=== PATIENT | female | born 1990 | race American Indian/Alaskan Native ===

== ENCOUNTER 2019-03-14 00:20 | Emergency (ER) | payer SELFPAY ==
[2019-03-14 00:38] VITALS: RESP 18; TEMP 98.5; O2SAT 100
[2019-03-14 00:50] VITALS: BMI 35.3
[2019-03-14] MEDS ORDERED: Sodium Chloride 0.9% 1,000 ML IV STA (00:54)
[2019-03-14 01:28] LABS: BASO # 0.01 K/mm3 (0.0-2.0); BASO % 0.1 % (0.0-3.0); EOS # 0.2 (0.0-0.7); HEMOGLOBIN 12.6 g/dL (12.0-16.0); LYMPH # 3.5 (1.2-3.4); LYMPH % 47.8 % (22.0-35.0); MEAN CELL VOLUME 85.7 fl (80.0-105.0); MEAN CORPUSCULAR HEMOGLOBIN 28.3 pg (25.0-35.0); MEAN PLATELET VOLUME 9.3 fl (7.0-11.0); MONO # 0.5 (0.1-0.6); MONO % 6.2 % (1.0-6.0); RBC 4.46 10^6/uL (3.5-6.1); RED CELL DISTRIBUTION WIDTH 13.4 % (11.5-14.5); WHITE BLOOD COUNT 7.4 10^3/uL (4.5-11.0)
[2019-03-14 01:30] LABS: PH,URINE 6.5 (4.7-8.0); URINE BILIRUBIN NEGATIVE (NEGATIVE); URINE BLOOD TRACE-LYSED (NEGATIVE); URINE GLUCOSE (UA) NEGATIVE (NEGATIVE); URINE LEUKOCYTE ESTERASE NEGATIVE Leu/uL (NEGATIVE); URINE PROTEIN NEGATIVE mg/dL (<30 mg/dL); URINE UROBILINOGEN 0.2 E.U./dL (<1 E.U./dL)
[2019-03-14 01:36] LABS: HCG,QUALITATIVE URINE POSITIVE (NEGATIVE)
[2019-03-14 01:37] LABS: URINE APPEARANCE CLEAR (CLEAR); URINE COLOR LIGHT YELLOW (YELLOW)
[2019-03-14 01:38] LABS: INR 1.12; PARTIAL THROMBOPLASTIN TIME 33.3 Seconds (26.9-38.3); PROTHROMBIN TIME 12.4 SECONDS (9.4-12.5)
--- NOTE | 2019-03-14 01:39 | ED PDOC ---
Arrival/HPI - General Historian: Patient - History of Present Illness Narrative History of Present Illness (Text): 03/14/19 01:20 28 y/o A4 7 week by LMP female with no significant PMH presents to the ED c/o abdominal pain x 2 days. Abdominal pain is sharp, intermittent, located in LLQ. Associated intermittent lightheadedness, lower back pain, nausea, vomiting, and constipation. Last BM this morning, hard brown stool. She had an ultrasound 2 weeks ago for this , but IUP was not confirmed. LMP 01/17/19. Denies fever, chills, vaginal bleeding or discharge, urinary symptoms, chest pain, cough, SOB, headache, dizziness, or any other associated symptoms. <Teri Perry - Last Filed: 03/14/19 13:02> <Sean Horton - Last Filed: 03/14/19 19:16> - General Chief Complaint: Abdominal Pain Time Seen by Provider: 03/14/19 00:22 Past Medical History - Provider Review Nursing Documentation Reviewed: Yes - Infectious Disease Hx of Infectious Diseases: None - Tetanus Immunization Tetanus Immunization: Unknown - Psychiatric Hx Substance Use: No - Surgical History Hx Section: Yes - Anesthesia Hx Anesthesia: Yes Hx Anesthesia Reactions: No Hx Malignant Hyperthermia: No <Teri Perry - Last Filed: 03/14/19 13:02> Family/Social History - Physician Review Nursing Documentation Reviewed: Yes Family/Social History: No Known Family HX Smoking Status: Never Smoked Hx Alcohol Use: No Hx Substance Use: No Hx Substance Use Treatment: No <Teri Perry - Last Filed: 03/14/19 13:02> Allergies/Home Meds <Teri Perry - Last Filed: 03/14/19 13:02> <Sean Horton - Last Filed: 03/14/19 19:16> Allergies/Adverse Reactions: Allergies No Known Allergies Allergy (Verified 03/14/19 00:50) Review of Systems - Review of Systems Constitutional: Normal. absent: Fevers Eyes: Normal. absent: Vision Changes, Photophobia ENT: Normal. absent: Sore Throat, Sinus Congestion Respiratory: Normal. absent: SOB, Cough Cardiovascular: Normal. absent: Chest Pain, Palpitations Gastrointestinal: Abdominal Pain, Constipation, Nausea, Vomiting, Appetite Changes. absent: Stool Changes, Diarrhea, Hematochezia, Hematemesis Genitourinary Female: Normal. absent: Dysuria, Frequency, Hematuria, Vaginal Bleeding, Vaginal Discharge Musculoskeletal: Back Pain. absent: Neck Pain Skin: Normal. absent: Rash Neurological: Dizziness. absent: Headache, Focal Weakness <Teri Perry - Last Filed: 03/14/19 13:02> Physical Exam Vital Signs Reviewed: Yes Vital Signs Temp Pulse Resp BP Pulse Ox 03/14/19 00:38 98.5 F 73 18 120/70 100 Temperature: Afebrile Blood Pressure: Normal Pulse: Regular Respiratory Rate: Normal Appearance: Positive for: Well-Appearing, Non-Toxic, Comfortable Pain Distress: None Mental Status: Positive for: Alert and Oriented X 3 - Systems Exam Head: Present: Atraumatic, Normocephalic Pupils: Present: PERRL Extroacular Muscles: Present: EOMI Conjunctiva: Present: Normal Mouth: Present: Moist Mucous Membranes Neck: Present: Normal Range of Motion. No: Meningeal Signs Respiratory/Chest: Present: Clear to Auscultation, Good Air Exchange. No: Respiratory Distress, Accessory Muscle Use Cardiovascular: Present: Regular Rate and Rhythm, Normal S1, S2. No: Murmurs Abdomen: Present: Tenderness (mild LLQ), Normal Bowel Sounds. No: Distention, Peritoneal Signs, Rebound, Guarding Rectal: Present: Normal Rectal Tone, Other (hard stool in rectal vault). No: Rectal Tenderness, Gross Blood, Melena, Hemorrhoids, Fissures, Nodule/Mass/Lesions Genitourinary/Pelvic Exam: Present: Normal External Genitalia, Cervical os Closed, Other (stool mass palpable from posterior vaginal wall). No: Vaginal Discharge, Vaginal Bleeding, Vaginal Lesions, Adenexal Tenderness, Cervical Motion Tendernes, Odor Back: Present: Normal Inspection. No: CVA Tenderness Upper Extremity: Present: Normal Inspection, Normal ROM, NORMAL PULSES, Neurovascularly Intact, Capillary Refill < 2s. No: Cyanosis, Edema, Temperature Abnormalties Lower Extremity: Present: Normal Inspection, NORMAL PULSES, Normal ROM, Neurovascularly Intact, Capillary Refill < 2 s. No: Edema, Temperature Abnormalties Neurological: Present: GCS=15, CN II-XII Intact, Speech Normal, Motor Func Grossly Intact, Normal Sensory Function, Gait Normal Skin: Present: Warm, Dry, Normal Color. No: Rashes Psychiatric: Present: Alert, Oriented x 3, Normal Insight, Normal Concentration, Normal Affect, Normal Mood <Teri Perry - Last Filed: 03/14/19 13:02> Vital Signs Temp Pulse Resp BP Pulse Ox 03/14/19 00:38 98.5 F 73 18 120/70 100 <Sean Horton - Last Filed: 03/14/19 19:16> Medical Decision Making ED Course and Treatment: 03/14/19 01:43 Initial Plan: * CBC, CMP * Coags * Lipase * Hcg quant * POC preg * UA * Transvaginal US * IVF 01:50 Bloodwork reviewed, unremarkable 02:00 Patient care endorsed to ED attending Dr. Horton pending Transvaginal US, quantitative Hcg, reassessment and disposition. Patient resting comfortably in stretcher with stable vitals at this time. Pt made aware of change in provider. - Lab Interpretations Lab Results: 03/14/19 01:15 03/14/19 01:15 Lab Results 03/14/19 01:15: Sodium 139, Potassium 3.9, Chloride 106, Carbon Dioxide 23, Anion Gap 15, BUN 11, Creatinine 0.7, Est GFR ( Amer) > 60, Est GFR (Non- Af Amer) > 60, Random Glucose 94, Calcium 9.4, Total Bilirubin 0.3, AST 31, ALT 11, Alkaline Phosphatase 61, Total Protein 8.1, Albumin 4.5, Globulin 3.6, Albumin/Globulin Ratio 1.2, Lipase Pending 03/14/19 01:15: Urine Color Light yellow, Urine Appearance Clear, Urine pH 6.5, Ur Specific [place] 1.015, Urine Protein Negative, Urine Glucose (UA) Negative, Urine Ketones Negative, Urine Blood Trace-lysed H, Urine Nitrate Negative, Urine Bilirubin Negative, Urine Urobilinogen 0.2, Ur Leukocyte Esterase Negative, Urine RBC Pending, Urine WBC Pending, Urine HCG, Qual Positive 03/14/19 01:15: PT 12.4, INR 1.12, APTT 33.3 03/14/19 01:15: WBC 7.4, RBC 4.46, Hgb 12.6, Hct 38.2, MCV 85.7, MCH 28.3, MCHC 33.0, RDW 13.4, Plt Count 263, MPV 9.3, Neut % (Auto) 43.9 L, Lymph % (Auto) 47.8 H, Camp % (Auto) 6.2 H, Eos % (Auto) 2.0, Baso % (Auto) 0.1, Lymph # (Auto) 3.5 H, Camp # (Auto) 0.5, Eos # (Auto) 0.2, Baso # (Auto) 0.01, Absolute Neuts (auto) 3.24 I have reviewed the lab results: Yes - RAD Interpretation Radiology Orders: 03/14/19 00:53 TRANSVAGINAL [US] Stat - Medication Orders Current Medication Orders: Sodium Chloride (Sodium Chloride 0.9%) 1,000 mls @ 999 mls/hr IV .Q1H1M STA Stop: 03/14/19 01:54 - Transfer of Care Patient signed out to Dr:: Clifford Pending Radiology Studies:: Transvaginal Ultrasound Other: Reassesment and Disposition <Teri Perry - Last Filed: 03/14/19 13:02> ED Course and Treatment: 03/14/19 03:29 Transvaginal US:Retroverted uterus. Normal cervical length measuring 4.3 cm. Single intrauterine gestational sac. Estimated gestational age 5 weeks and 4 days. The crown-rump length measures 0.7 cm. This corresponds to an estimated gestational age of 6 weeks and 4 days. heart rate 132 beats per minute. Nonvisualization of the ovaries. Impression: Single, live intrauterine gestation. No abnormality is seen. Electronically signed on Mar 14, 2019 3:23:48 AM EDT by: Gallo Iyer M.D., Certified by ABR, MSK, Neuroradiology - Lab Interpretations Lab Results: PT 12.4 SECONDS (9.4-12.5) 03/14/19 01:15 INR 1.12 03/14/19 01:15 APTT 33.3 Seconds (26.9-38.3) 03/14/19 01:15 Total Bilirubin 0.3 mg/dL (0.2-1.3) 03/14/19 01:15 AST 31 U/L (14-36) 03/14/19 01:15 ALT 11 U/L (7-56) 03/14/19 01:15 Alkaline Phosphatase 61 U/L (38-126) 03/14/19 01:15 Total Protein 8.1 g/dL (5.8-8.3) 03/14/19 01:15 Albumin 4.5 g/dL (3.0-4.8) 03/14/19 01:15 Globulin 3.6 gm/dL 03/14/19 01:15 Albumin/Globulin Ratio 1.2 (1.1-1.8) 03/14/19 01:15 Lipase 162 U/L (23-300) 03/14/19 01:15 Urine Color Light yellow (YELLOW) 03/14/19 01:15 Urine Appearance Clear (CLEAR) 03/14/19 01:15 Urine pH 6.5 (4.7-8.0) 03/14/19 01:15 Ur Specific [place] 1.015 (1.005-1.035) 03/14/19 01:15 Urine Protein Negative mg/dL (<30 mg/dL) 03/14/19 01:15 Urine Glucose (UA) Negative mg/dL (NEGATIVE) 03/14/19 01:15 Urine Ketones Negative mg/dL (NEGATIVE) 03/14/19 01:15 Urine Blood Trace-lysed (NEGATIVE) H 03/14/19 01:15 Urine Nitrate Negative (NEGATIVE) 03/14/19 01:15 Urine Bilirubin Negative (NEGATIVE) 03/14/19 01:15 Urine Urobilinogen 0.2 E.U./dL (<1 E.U./dL) 03/14/19 01:15 Ur Leukocyte Esterase Negative Xiomara/uL (NEGATIVE) 03/14/19 01:15 Urine RBC 0 - 2 /hpf (0-2) 03/14/19 01:15 Urine WBC 0 - 2 /hpf (0-6) 03/14/19 01:15 Ur Epithelial Cells 0 - 2 /hpf (0-5) 03/14/19 01:15 Urine Bacteria Occ /hpf (NONE) 03/14/19 01:15 Urine HCG, Qual Positive (NEGATIVE) 03/14/19 01:15 Beta HCG, Quant 80148.00 mIU/mL (0-6.15) H 03/14/19 01:15 Urine HCG, Qual Positive (NEGATIVE) 03/14/19 01:15 I have reviewed the lab results: Yes - RAD Interpretation Radiology Orders: 03/14/19 00:53 OB TRANSVAGINAL [US] Stat [employer] Project Manager: Radiologist - Medication Orders Current Medication Orders: Discontinued Medications Sodium Chloride (Sodium Chloride 0.9%) 1,000 mls @ 999 mls/hr IV .Q1H1M STA Stop: 03/14/19 01:54 Last Admin: 03/14/19 01:22 Dose: 999 mls/hr eMAR Start Stop Document 03/14/19 01:22 AD (Rec: 03/14/19 01:[address] [facility] [place]-[id number]) Intravenous Solution Start Date 03/14/19 Start Time 01:22 <Sean Horton - Last Filed: 03/14/19 19:16> - PA / CHANGE PERSON / Resident Statement / has reviewed & agrees with the documentation as recorded. <Sean Horton - Last Filed: 03/14/19 19:16> Disposition/Present on Arrival - Present on Arrival Any Indicators Present on Arrival: No History of DVT/PE: No History of Uncontrolled Diabetes: No Urinary Catheter: No History of Decub. Ulcer: No History Surgical Site Infection Following: None - Disposition Have Diagnosis and Disposition been Completed?: No Disposition Time: 02:00 <Teri Perry - Last Filed: 03/14/19 13:02> <Sean Horton - Last Filed: 03/14/19 19:16> - Disposition Diagnosis: , Abdominal pain, Constipation Disposition: HOME/ ROUTINE Condition: STABLE Discharge Instructions (ExitCare): Constipation in Adults, - The Second Month Prescriptions: Pnv No.95/Ferrous Fum/Folic AC [ Caplet] 1 each PO DAILY #60 tablet Forms: [employer] ([place]ian)
[2019-03-14 01:46] LABS: ALB/GLOB RATIO 1.2 (1.1-1.8); ALBUMIN 4.5 g/dL (3.0-4.8); ALT/SGPT 11 U/L (7-56); AST/SGOT 31 U/L (14-36); BLOOD UREA NITROGEN 11 mg/dL (7-21); CALCIUM 9.4 mg/dL (8.4-10.5); GFR NON-AFRICAN AMERICAN > 60
[2019-03-14 02:01] LABS: LIPASE 162 U/L (23-300)
[2019-03-14 02:08] LABS: URINE BACTERIA OCC /hpf; URINE EPITHELIAL CELLS 0 - 2 /hpf (0-5); URINE RBC 0 - 2 /hpf (0-2); URINE WBC 0 - 2 /hpf (0-6)
[2019-03-14 03:47] VITALS: BP 121/82; PULSE 70
--- NOTE | 2019-03-14 16:14 | US ---
Date of service: 03/14/2019 HISTORY: OB, LMP 01/17, LLQ pain COMPARISON: None available. TECHNIQUE: FINDINGS: UTERUS: Measures 12.9 x 5.5 x 6.7 cm. Normal in size and appearance. Retroverted. No fibroid or other mass lesion seen. ENDOMETRIUM: There is a single living intrauterine gestation. Gestational sac: MSD = 1.4 cm = 5 weeks Yolk sac: 4 days 0.13 cm pole: CRL = 0.7 cm = 6 weeks 4 days Average ultrasound age: 6 weeks 1 day +/-0 weeks 3 days Heart motion: 132 BPM LORNA based on average ultrasound age: 1211/06/2019 CERVIX: No cervical abnormality identified. RIGHT OVARY: Not visualized LEFT OVARY: Not visualized FREE FLUID: No significant free fluid noted. OTHER FINDINGS: None. IMPRESSION: Single living intrauterine gestation with estimated age approximately 6 weeks 1 day +/-0 weeks 3 days. Heart rate document at 132 BPM. Neither ovary visualized on this exam.
== END 2019-03-14 03:46 | disposition home or self-care (01) ==
LOC: ED 00:20
DX: O26.891 Other specified pregnancy related conditions, first trimester (principal); Z3A.01 Less than 8 weeks gestation of pregnancy; K59.00 Constipation, unspecified; R10.9 Unspecified abdominal pain
CPT/HCPCS: 76817; 80053; 81001; 81025; 83690; 84702; 84703; 85025; 85610; 85730; 86850; 86900; 99283; J7030

== ENCOUNTER 2019-03-18 08:19 | Emergency (ER) | payer SELFPAY ==
[2019-03-18 08:20] VITALS: BMI 35.3
[2019-03-18 08:42] VITALS: RESP 18
[2019-03-18 09:15] VITALS: O2SAT 98
[2019-03-18 09:46] LABS: BASO # 0.02 K/mm3 (0.0-2.0); BASO % 0.3 % (0.0-3.0); EOS # 0.1 (0.0-0.7); EOS % 1.6 % (1.5-5.0); HEMOGLOBIN 12.4 g/dL (12.0-16.0); LYMPH # 2.8 (1.2-3.4); LYMPH % 44.5 % (22.0-35.0); MEAN CELL VOLUME 86.4 fl (80.0-105.0); MEAN CORPUSCULAR HEMOGLOBIN 28.2 pg (25.0-35.0); MEAN CORPUSCULAR HGB CONC 32.6 g/dl (31.0-37.0); MEAN PLATELET VOLUME 9.6 fl (7.0-11.0); MONO # 0.4 (0.1-0.6); RBC 4.4 10^6/uL (3.5-6.1); RED CELL DISTRIBUTION WIDTH 13.2 % (11.5-14.5); WHITE BLOOD COUNT 6.2 10^3/uL (4.5-11.0)
[2019-03-18 10:08] LABS: ALB/GLOB RATIO 1.2 (1.1-1.8); ALBUMIN 4.3 g/dL (3.0-4.8); ALT/SGPT < 6 U/L (7-56); AST/SGOT 23 U/L (14-36); BLOOD UREA NITROGEN 10 mg/dL (7-21); CALCIUM 9.4 mg/dL (8.4-10.5); GFR NON-AFRICAN AMERICAN > 60
--- NOTE | 2019-03-18 10:11 | ED PDOC ---
Arrival/HPI - General Chief Complaint: Female Genitourinary Time Seen by Provider: 03/18/19 08:46 Historian: Patient - History of Present Illness Narrative History of Present Illness (Text): 03/18/19 08;46 Anay Canchola is a 28 year old female, A4 w/ , who presents to the emergency department complaining of brown/parrish vaginal bleeding since yesterday. Patient notes bleeding is heavier this morning. Denies clots or usage of pads. Patient notes abdominal cramping and blood in urine secondary to vaginal bleeding. Patient also informs of associated nausea, vomiting, back pain. [place] [facility] [place] for [place]; US showed single live IUP with gestational aged estimated at 6 weeks and 1 day. Heart rate documented at 132 BPM. Betaquant noted at 11,140 4 days ago. Patient denies f alma, chills, fatigue, headache, dizziness, vision changes, chest pain, shortness of breath, diarrhea, dysuria, bloody stool, neck pain, or any other complaint. Time/Duration: 24 hours Symptom Onset: Sudden Symptom Course: Worsening Activities at Onset: Light Context: Home Past Medical History - Provider Review Nursing Documentation Reviewed: Yes - Infectious Disease Hx of Infectious Diseases: None - Tetanus Immunization Tetanus Immunization: Unknown - Cardiac Hx Cardiac Disorders: No - Gastrointestinal Hx Gastrointestinal Disorders: No - Psychiatric Hx Psychophysiologic Disorder: No Hx Substance Use: No - Surgical History Hx Section: Yes - Anesthesia Hx Anesthesia: Yes Hx Anesthesia Reactions: No Hx Malignant Hyperthermia: No Family/Social History - Physician Review Nursing Documentation Reviewed: Yes Smoking Status: Never Smoked Hx Alcohol Use: No Hx Substance Use: No Hx Substance Use Treatment: No Allergies/Home Meds Allergies/Adverse Reactions: Allergies No Known Allergies Allergy (Verified 03/14/19 00:50) Review of Systems - Physician Review All systems were reviewed & negative as marked: Yes - Review of Systems Constitutional: absent: Fatigue, Fevers, Other (chills) Eyes: absent: Vision Changes Respiratory: absent: SOB Cardiovascular: absent: Chest Pain Gastrointestinal: Abdominal Pain (abdominal cramping), Nausea, Vomiting. absent: Diarrhea, Hematochezia Genitourinary Female: Hematuria (secondary to vaginal bleeding), Vaginal Bleeding (no clots). absent: Dysuria Musculoskeletal: Back Pain. absent: Neck Pain Neurological: absent: Headache, Dizziness Physical Exam Vital Signs Reviewed: Yes Vital Signs Temp Pulse Resp BP Pulse Ox 03/18/19 09:14 81 18 116/66 98 03/18/19 08:32 98.4 F 92 H 18 113/73 99 Temperature: Afebrile Blood Pressure: Normal Pulse: Regular Respiratory Rate: Normal Appearance: Positive for: Well-Appearing, Non-Toxic, Comfortable Pain Distress: None Mental Status: Positive for: Alert and Oriented X 3 - Systems Exam Head: Present: Atraumatic, Normocephalic Pupils: Present: PERRL Extroacular Muscles: Present: EOMI Conjunctiva: Present: Normal Mouth: Present: Moist Mucous Membranes Neck: Present: Normal Range of Motion Respiratory/Chest: Present: Clear to Auscultation, Good Air Exchange. No: Respiratory Distress, Accessory Muscle Use, Wheezes, Rales Cardiovascular: Present: Regular Rate and Rhythm, Normal S1, S2. No: Murmurs, Rub, Gallop Abdomen: Present: Tenderness (lower abdominal tenderness), Normal Bowel Sounds. No: Distention, Peritoneal Signs, Rebound Genitourinary/Pelvic Exam: Present: Vaginal Bleeding (scant amount of blood in vaginal vault), Cervical os Closed. No: Cervical Motion Tendernes Back: Present: Normal Inspection Upper Extremity: Present: Normal Inspection, Normal ROM, NORMAL PULSES, Neurovascularly Intact, Capillary Refill < 2s. No: Cyanosis, Edema Lower Extremity: Present: Normal Inspection, NORMAL PULSES, Normal ROM, Neurovascularly Intact, Capillary Refill < 2 s. No: Edema Neurological: Present: GCS=15, CN II-XII Intact, Speech Normal, Motor Func Grossly Intact Skin: Present: Warm, Dry, Normal Color. No: Rashes Psychiatric: Present: Alert, Oriented x 3, Normal Insight, Normal Concentration Medical Decision Making ED Course and Treatment: 03/18/19 08:46 Impression: Patient is a 28 year old female, /A4 w/ c-sections, who presents to the emergency department for brown/parrish vaginal bleeding since yesterday. Patient informs bleeding is heavier this morning. Patient denies clots or usage of pads. Patient informs of blood in urine secondary to vaginal bleeding. Patient also informs of associated nausea, vomiting, back pain. Patient was evaluated 4 [place] ago [place] [facility] [place]; US showed pj IUP with estimated gestational age of 6 week 1 day. HR documented at 132 BPM. Beta quant 4 days ago reads 11,140. Denies fevers, chills, diarrhea, dysuria. On exam; lower abdominal tenderness, no rebound. Plan: -- BBK -- Labs -- US Transvaginal -- Reassess and disposition Prior Visits: Notes and results from previous visits were reviewed. Progress Notes: 03/18/19 11:21 US Transvaginal shows: IMPRESSION: No pole identified. Findings suggests intrauterine demise. Irregular deformed gestational sac/yolk sac identified lower endometrial. Unremarkable adnexa. 03/18/19 11:45 Paging [employer] manager registration. - Lab Interpretations Lab Results: Total Bilirubin 0.3 mg/dL (0.2-1.3) 03/18/19 09:10 AST 23 U/L (14-36) 03/18/19 09:10 ALT < 6 U/L (7-56) L 03/18/19 09:10 Alkaline Phosphatase 49 U/L (38-126) 03/18/19 09:10 Total Protein 7.9 g/dL (5.8-8.3) 03/18/19 09:10 Albumin 4.3 g/dL (3.0-4.8) 03/18/19 09:10 Globulin 3.6 gm/dL 03/18/19 09:10 Albumin/Globulin Ratio 1.2 (1.1-1.8) 03/18/19 09:10 - RAD Interpretation Radiology Orders: 03/18/19 09:10 OB TRANSVAGINAL [US] Stat - Scribe Statement The provider has reviewed the documentation as recorded by the Scribroque Carty All medical record entries made by the Scribe were at my direction and persona lly dictated by me. I have reviewed the chart and agree that the record accurately reflects my personal performance of the history, physical exam, medical decision making, and the department course for this patient. I have also personally directed, reviewed, and agree with the discharge instructions and disposition. Disposition/Present on Arrival - Present on Arrival Any Indicators Present on Arrival: No History of DVT/PE: No History of Uncontrolled Diabetes: No Urinary Catheter: No History of Decub. Ulcer: No History Surgical Site Infection Following: None - Disposition Have Diagnosis and Disposition been Completed?: Yes Diagnosis: demise Disposition: HOME/ ROUTINE Disposition Time: 12:05 Patient Plan: Discharge Condition: STABLE Discharge Instructions (ExitCare): Miscarriage (DC) Additional Instructions: ANAY CANCHOLA, thank you for letting us take care of you today. Your provider was Adriana Coleman MD and you were treated for bleeding ( ). The emergency medical care you received today was directed at your acute symptoms. If you were prescribed any medication, please fill it and take as directed. It may take several days for your symptoms to resolve. Return to the Emergency Department if your symptoms worsen, do not improve, or if you have any other problems. Please make an appointment to see your OB doctor in 1 week. Bring any paperwork you were given at discharge with you along with any medications you are taking to your follow up visit. Our treatment cannot replace ongoing medical care by a primary care provider outside of the emergency department. Thank you for allowing the [facility] team to be part of your care today. Referrals: Elizabeth Foster MD [Medical Doctor] - Follow up with primary Forms: [employer] (Citizen Of [place])
--- NOTE | 2019-03-18 11:25 | US ---
Date of service: 03/18/2019 PROCEDURE: First trimester ultrasound HISTORY: vag bleeding/abd pain COMPARISON: 03/14/2019. TECHNIQUE: Standard protocol for this study/examination. FINDINGS: LMP: 01/17/2019. Prior examinations from the current : 03/14/2019. TECHNIQUE: Real-time 2D imaging, duplex and color Doppler. FINDINGS: No pole identified. Gestational age five weeks 2 days based on gestational sac measurement 1.21 cm cm Gestational age derived from LMP: 8 weeks 4 days LORNA based on LMP: 10/24/2019 LORNA based on biometry: 11/16/2019. Yolk sac identified Cervix: No Cervical abnormalities: Negative examination for cervical dilatation or effacement. Closed cervix measuring 3.50 cm Subchorionic hemorrhage: None UTERUS: 5.2 x 6 x 12.3 cm. ADNEXA: Right: 1 x 2.1 x 2.3 cm. Normal Doppler arterial waveform documented. Left: 1.6 x 2.7 x 2.9 cm. Normal Doppler arterial waveform documented Fluid in the cul-de-sac: None IMPRESSION: No pole identified. Findings suggests intrauterine demise. Irregular deformed gestational sac/yolk sac identified lower endometrial. Unremarkable adnexa.
[2019-03-18 12:38] VITALS: BP 117/76; PULSE 77; TEMP 98.3
== END 2019-03-18 12:40 | disposition home or self-care (01) ==
LOC: ED 08:19
DX: O36.4XX0 Maternal care for intrauterine death, not applicable or unspecified (principal); Z3A.01 Less than 8 weeks gestation of pregnancy